=== PATIENT | male | born 1955 | race Caucasian/White ===

== ENCOUNTER 2024-06-04 09:27 | Emergency (ER) | payer MEDICARE, OTHER ==
[2024-06-04] MEDS: Acetaminophen/oxyCODONE 325-5 MG Tab PO ONE (11:24)
== END 2024-06-04 12:40 | disposition home or self-care (01) ==
LOC: MW.ED 09:27
DX: S22.32XA Fracture of one rib, left side, initial encounter for closed fracture (principal); Z75.8 Other problems related to medical facilities and other health care; W10.9XXA Fall (on) (from) unspecified stairs and steps, initial encounter
CPT/HCPCS: 71101; 99283; A9270